=== PATIENT | male | born 1985 | race Caucasian/White ===

== ENCOUNTER 2017-08-15 21:24 | Emergency (ER) | payer OTHER ==
[~2017-08-15] VITALS: Ht 172.7 cm; Wt 88.5 kg
[2017-08-15 21:30] VITALS: BP 159/89
[2017-08-15] MEDS ORDERED: COLCHICINE0.6 M2 PO (21:53)
[2017-08-15] MEDS ORDERED: PREDNISONE50 M1 PO (21:53)
[2017-08-15] MEDS ORDERED: INDOMETHACIN50 M1 PO (21:53)
[2017-08-15] MEDS ORDERED: PERCOCET 5-3251 EACH PO (21:53)
--- NOTE | 2017-08-15 21:54 | ED ANKLE/FOOT INJURY COMPLAINT ---
History of Present Illness General Chief Complaint: General Adult Stated Complaint: GOUT ATTACK PER PT Source: patient Exam Limitations: no limitations Vital Signs & Intake/Output Vital Signs & Intake/Output Vital Signs Date Time Temp Pulse Resp B/P B/P Pulse O2 O2 Flow FiO2 Mean Ox Delivery Rate 08/15 2153 97 Room Air 08/15 2129 98.2 92 18 159/89 99 Room Air Allergies Coded Allergies: No Known Allergies (08/15/17) Reconcile Medications Colchicine 0.6 MG TABLET 1 TAB PO BID GOUT Indomethacin 50 MG CAPSULE 1 CAP PO TID GOUT with food Oxycodone HCl/Acetaminophen (Percocet 5-325 MG Tablet) 5 MG-325 MG TABLET 1-2 TAB PO BID PAIN Prednisone 50 MG TABLET 1 TAB PO DAILY GOUT Triage Note: RECEIVED 31 YO MALE WITH HX OF GOUT C/O RIGHT ANKLE PAIN X 2 WEEKS, NOW WITH SEVERE PAIN TO RIGHT LATERAL FOOT AREA. NO INJURY NOTED. PT TAKES ALLOPURINOL AND COLCHICINE, BUT IS OUT OF THE FORMER AND HIS PMD IS OUT OF TOWN. Triage Nurses Notes Reviewed? yes Duration: day(s):, constant, continues in ED Timing: recent history Severity: moderate, severe Pain/Injury Location: Right: Ankle. No Modifying Factors: none HPI: 31-year-old male comes into emergency room with complaints of gout. Patient has swelling to right ankle and foot. Throbbing. Some associated warmth. History of gout in this area. Denies any fever chills vomiting. Nothing seems to make the symptoms better. Patient comes in for further evaluation. (Federico Serrano) Past History Travel History Traveled to [place] past 21 day No Medical History Any Pertinent Medical History? see below for history Neurological: NONE EENT: NONE Cardiovascular: NONE Respiratory: NONE Gastrointestinal: NONE Hepatic: NONE Renal: NONE Musculoskeletal: gout Psychiatric: NONE Endocrine: NONE Blood Disorders: NONE Cancer(s): NONE Surgical History Surgical History: non-contributory Psychosocial History What is your primary language Hungarian Tobacco Use: Never used Family History Hx Contributory? No (Federico Serrano) Review of Systems Review of Systems Constitutional: Reports: no symptoms. EENTM: Reports: no symptoms. Respiratory: Reports: no symptoms. Cardiovascular: Reports: no symptoms. GI: Reports: no symptoms. Genitourinary: Reports: no symptoms. Musculoskeletal: Reports: see HPI. Skin: Reports: see HPI. Neurological/Psychological: Reports: no symptoms. Hematologic/Endocrine: Reports: no symptoms. Immunologic/Allergic: Reports: no symptoms. All Other Systems: Reviewed and Negative (Federico Serrano) Physical Exam Physical Exam General Appearance: well developed/nourished, mild distress Head: atraumatic Eyes: Bilateral: normal appearance. Ears, Nose, Throat: normal ENT inspection, hearing grossly normal Neck: normal inspection Cardiovascular/Respiratory: no respiratory distress Back: normal inspection Leg/Knee/Thigh Left: normal inspection Ankle Right: swelling, tenderness, WARMTH Foot Right: swelling, WARMTH Tendon: normal tendon function Psychiatric: awake, alert, oriented x 3 Skin: intact, normal color, warm/dry (Federico Serrano) Progress Differential Diagnosis: cellulitis, septic arthritis, gout, dislocation, sprain, contusion Plan of Care: 08/15/2017 10:07:50 PM Symptoms are most consistent with gout. Patient treated symptomatically. X- rays are not necessary at this time. Return if any other concerns. Patient was given a outpatient slip and told to have outpatient x-rays symptoms not better in 3-5 days. Low suspicion for cellulitis. Prior history of gout in the same area. (Federico Serrano) Departure Departure Disposition: HOME OR SELF CARE Condition: Stable Clinical Impression Primary Impression: Acute gouty arthritis Referrals: Fredrick Hammonds MD (PCP/Family) Additional Instructions: Take Percocet, prednisone, colchicine, indomethacin as prescribed. Follow-up with PCP. If symptoms don't improve in 3-5 days follow-up for outpatient x-ray. Follow-up with your primary care physician this week. Contact them to let them know you were here in the emergency room. Return to the emergency room at any time sooner if you have worsening of your symptoms or any other concerns. Please note that there might be incidental findings in your evaluation that are unrelated to the current emergency department visit. Please notify your primary care doctor about this emergency department visit in order to obtain and review all of the testing performed so that these incidental findings can be monitored as needed. If you were prescribed a narcotic use caution as this medication is highly addictive and may make you feel lightheaded,dizzy or drowsy. These can make you constipated. Use for breakthrough pain only. No driving, drinking alcohol or operating [employer] when taking. If you had an x-ray performed, please understand that some fractures may not be seen on the initial set of x-rays. If your symptoms persist you might need a repeat set of x-rays to check for such a fracture. If you had a laceration evaluated, please understand that foreign bodies such as glass or wood may not be visible to the naked eye or on plain x-rays. If the wound becomes red, swollen, increasingly more painful or if there is any drainage from the wound, please have it reevaluated by a physician for the possibility of a retained foreign body. Departure Forms: Customer Survey General Discharge Information Prescriptions: Current Visit Scripts Prednisone 1 TAB PO DAILY #5 TAB Oxycodone HCl/Acetaminophen (Percocet 5-325 MG Tablet) 1-2 TAB PO BID #15 TAB Indomethacin 1 CAP PO TID #30 CAP with food Colchicine 1 TAB PO BID #30 TAB (Federico Serrano) PA/SALES SUPPORT ENGINEER Co-Sign Statement Statement: ED Attending supervision documentation- [] I saw and evaluated the patient. I have also reviewed all the pertinent lab results and diagnostic results. I agree with the findings and the plan of care as documented in the PA's/SALES SUPPORT ENGINEER's documentation. [X] I have reviewed the ED Record and agree with the PA's/SALES SUPPORT ENGINEER's documentation. [] Additions or exceptions (if any) to the PAs/SALES SUPPORT ENGINEER's note and plan are summarized below: [] (Radha MANE,Lashonda)
== END 2017-08-15 22:02 ==
LOC: ERH 21:24
DX: M10.9 Gout, unspecified (principal)